=== PATIENT | female | born 1985 | race American Indian/Alaskan Native ===

== ENCOUNTER 2022-05-22 04:13 | Day surgery (SDC) | payer OTHER ==
[2022-05-18 09:54] VITALS: BMI 26.2
[2022-05-22] MEDS ORDERED: ONDANSETRON 4 MG/2 ML VIAL IVPUSH PRN ×2 (11:31→12:22)
[2022-05-22] MEDS ORDERED: oxyCODONE HCL 5 MG TABLET PO PRN ×2 (11:31→12:22)
[2022-05-22] MEDS ORDERED: LACTATED RINGERS SOLUTION 1,000 ML IV SCH (11:45)
[2022-05-22] MEDS ORDERED: IBUPROFEN 800 MG/8 ML IJ IVPB PRN (12:22)
[2022-05-22] MEDS ORDERED: IBUPROFEN 600 MG TABLET (FP) PO PRN (12:22)
[2022-05-22] MEDS ORDERED: ELECTROLYTE-148 SOLN 1,000 ML IV SCH (12:30)
[2022-05-22] MEDS ORDERED: DEXAMETHASONE SOD PHOSPHATE 4 MG/1 ML VIAL ONE (12:33)
[2022-05-22] MEDS ORDERED: LIDOCAINE HCL/PF 2% SDV 5ML VIAL ONE (12:33)
[2022-05-22] MEDS ORDERED: PROPOFOL 20 ML ONE (12:34)
[2022-05-22] MEDS ORDERED: MIDAZOLAM HCL 2 MG/2 ML SINGLE DOSE VIAL ONE (12:34)
[2022-05-22] MEDS ORDERED: FENTANYL CITRATE/PF 50 MCG/ML VIAL ONE ×2 (13:50→14:31)
[2022-05-22] MEDS ORDERED: oxyCODONE HCL 5 MG TABLET ONE (15:21)
[2022-05-22] MEDS ORDERED: oxyCODONE HCL 5 MG TABLET PO ONE (15:25)
[2022-05-22 15:31] VITALS: TEMP 97.4
[2022-05-22 17:06] VITALS: BP 118/74; PULSE 62
== END 2022-05-22 17:09 | disposition home or self-care (01) ==
LOC: JASU-SURG 04:13
PROVIDERS: ATTEND Obstetrics & Gynecology
PROC: 0UB98ZZ Excision of Uterus, Via Natural or Artificial Opening Endoscopic (ICD-10-PCS; 2022-05-22)
PROC: 0UDB7ZZ Extraction of Endometrium, Via Natural or Artificial Opening (ICD-10-PCS; 2022-05-22)
PROC: 0UC98ZZ Extirpation of Matter from Uterus, Via Natural or Artificial Opening Endoscopic (ICD-10-PCS; 2022-05-22)
PROC: 0UB98ZZ Excision of Uterus, Via Natural or Artificial Opening Endoscopic (ICD-10-PCS; principal; 2022-05-22 12:00)
DX: D25.9 Leiomyoma of uterus, unspecified (principal); N84.0 Polyp of corpus uteri; T19.2XXA Foreign body in vulva and vagina, initial encounter; X58.XXXA Exposure to other specified factors, initial encounter; Y93.9 Activity, unspecified; Y92.9 Unspecified place or not applicable
CPT/HCPCS: 81025; 88305-TC; 94760